=== PATIENT | male | born 1995 | race Caucasian/White ===

== ENCOUNTER 2018-08-03 10:03 | Emergency (ER) | payer OTHER ==
[2018-08-03 10:12] VITALS: BP 104/70
[2018-08-03] MEDS ORDERED: ACETAMINOPHEN 500 MG TAB PO ONE (10:27)
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
== END 2018-08-03 10:34 | disposition home or self-care (01) ==
LOC: CED 10:03
DX: R51 Headache (principal); R42 Dizziness and giddiness; V49.49XA Driver injured in collision with other motor vehicles in traffic accident, initial encounter; Y92.410 Unspecified street and highway as the place of occurrence of the external cause; G40.909 Epilepsy, unspecified, not intractable, without status epilepticus